=== PATIENT | male | born 1960 | race Caucasian/White ===

== ENCOUNTER → 2019-12-22 16:46 | Outpatient (CLI) | payer BC, OTHER, SELFPAY ==
[2015-12-06 18:42] VITALS: BMI 28.3
--- NOTE | 2019-12-22 16:52 | RAD_ITS ---
STUDY: X-RAY CHEST REASON FOR EXAM: Male, 59 years old. Wheezing for 2 to 3 days. TECHNIQUE: COMPARISON: None. FINDINGS: The lungs are clear and expanded. There is no demonstrated pleural abnormality. Normal size heart. Normal mediastinum and judith. Normal visualized pulmonary arteries. Normal visualized aortic arch and descending thoracic aorta. There are diffuse degenerative changes of the visualized thoracic spine. Normal visualized ribs, clavicles, and shoulders. There is no demonstrated abnormality of the visualized soft tissue structures of the upper abdomen. RAD/Chest PA and Lateral IMPRESSION: Degenerative changes, as described above. No demonstrated acute cardiopulmonary process. Electronically Signed: Benjie Ortiz DO at 20:43 EDT Tel [phone], Service support ,
== END ==
PROVIDERS: PCP Family Medicine; Referring Provider Family Medicine; Visit Provider Family Medicine
DX: R06.2 Wheezing (principal)
CPT/HCPCS: 71046

== ENCOUNTER 2021-06-06 11:37 | Outpatient (CLI) | payer BC, OTHER, SELFPAY ==
[2021-06-06 15:41] LABS: Cholesterol 249 mg/dL (200); High Density Lipoprotein 61 mg/dL; PSA,Total - Annual Screen 0.74 ng/mL (0.00-4.00); Triglycerides 233 mg/dL; Very Low Density Lipoprotein 47 mg/dL (5-40)
[2021-06-07 10:03] LABS: Hemoglobin A1c 5.6 % (3.8-5.6)
== END 2021-06-06 23:59 | disposition short-term general hospital (02) ==
LOC: MFPLAB 11:42
PROVIDERS: PCP Family Medicine; Referring Provider Family Medicine; Visit Provider Family Medicine
DX: Z00.00 Encounter for general adult medical examination without abnormal findings (principal)
CPT/HCPCS: 36415; 80061; 83036; 84153; G0103

== ENCOUNTER → 2022-03-25 | Outpatient (CLI) | payer BC, OTHER, SELFPAY ==
--- NOTE | 2022-03-25 08:09 | ECHOCS_ITS ---
Version 2 Reason For Study: Family Hx Procedure This was a 2D Doppler, Color Flow transthoracic echocardiogram. The study was technically difficult. Contrast injection was performed. Exam performed in department. Left Ventricle Normal LV size. Mild concentric left ventricular hypertrophy. Left ventricular systolic function is normal. The estimated ejection fraction is 65 %. No regional wall motion abnormalities noted. Right Ventricle Normal RV size. Normal systolic function. Atria Normal left atrium. Normal right atrium. Mitral Valve Normal mitral valve. Tricuspid Valve Normal tricuspid valve. Mild tricuspid valve insufficiency. Pulmonary artery systolic pressure is 27 mmHg. Pulmonic Valve Normal pulmonic valve. Great Vessels Normal aortic root. The pulmonary artery is normal size. Normal inferior vena cava. Pericardium/Pleural No pericardial effusion. Medication 20 gauge I.V. with prn adaptor inserted into right arm. Diluted definity 0.5ml given slow IV push to enhance endocardial definition. MMode/2D Measurements & Calculations LVIDd: 4.3 cm IVSd: 1.2 cm Ao root diam: 3.0 cm LVIDs: 2.8 cm LVPWd: 1.4 cm LA dimension: 4.4 cm RVDd: 3.3 cm FS: 36.0 % LAV(MOD-bp): 41.6 ml LA A4 area: 16.1 cm2 RA A4 area: 14.6 cm2 LAV(MOD-bp) Indexed: 20.4 ml/m2 LAV(MOD-sp2): 38.3 ml LAV(MOD-sp4): 41.0 ml Time Measurements MV dec time: 0.18 sec Doppler Measurements & Calculations MV E max sidney: 102.4 cm/sec Lat Peak E' Sidney: 12.5 cm/sec Med Peak E' Sidney: 9.1 cm/sec MV A max sidney: 77.7 cm/sec E/E' lat: 8.2 E/E' med: 11.3 MV E/A: 1.3 MV V2 max: 101.1 cm/sec MV dec slope: 574.5 cm/sec2 Ao V2 max: 152.3 cm/sec MV max P.1 mmHg Ao max P.3 mmHg MV V2 mean: 44.1 cm/sec MV mean P.1 mmHg MV V2 VTI: 33.0 cm LV V1 max: 137.6 cm/sec PA V2 max: 125.9 cm/sec TR max sidney: 244.4 cm/sec LV V1 max P.6 mmHg TR max P.9 mmHg ECHO/Echo Complete W/ Contrast Interpretation Summary Normal LV size. Left ventricular systolic function is normal. The estimated ejection fraction is 65 %. Mild concentric left ventricular hypertrophy. Contrast injection was performed. Ordering Physician: Sol Dubose Referring Physician: Sol Dubose M.D. Performed By: Garrick Abad RCS
== END | disposition home or self-care (01) ==
PROVIDERS: PCP Family Medicine; Visit Provider Family Medicine
DX: I07.1 Rheumatic tricuspid insufficiency (principal)
CPT/HCPCS: 93306; Q9957; A4216; C8929

== ENCOUNTER → 2023-11-04 | Outpatient (CLI) | payer BC, OTHER, SELFPAY ==
[2023-11-04 12:44] LABS: Cholesterol 246 mg/dL (200); High Density Lipoprotein 70 mg/dL; PSA,Total - Annual Screen 0.98 ng/mL (0.00-4.00); Triglycerides 168 mg/dL; Very Low Density Lipoprotein 34 mg/dL (5-40)
== END | disposition home or self-care (01) ==
LOC: MFPLAB 09:59
PROVIDERS: PCP Family Medicine; Visit Provider Family Medicine
DX: Z00.00 Encounter for general adult medical examination without abnormal findings (principal); Z12.5 Encounter for screening for malignant neoplasm of prostate
CPT/HCPCS: 36415; 80061; 84153; G0103